=== PATIENT | female | born 1945 | race Caucasian/White ===

== ENCOUNTER 2018-04-25 11:53 | Outpatient (CLI) | payer BC, MEDICARE ==
--- NOTE | 2018-04-25 15:18 | RAD ---
XR BONE SURVEY ADULT STANDARD: HISTORY: C90.0, staging of multiple myeloma. COMPARISON: None. TECHNIQUE: AP and lateral views of the cervical, thoracic, and lumbar spine as well as lateral radiograph of the calvarium, AP and lateral views of both humeri, as well as both forearms, as well as AP views of bot h femurs, tibia fibulas, forearms, and pelvis. FINDINGS: There is a single lytic focus projecting over the parietal calvarium only seen on the single view. Degenerative C4 over C5 retrolisthesis is present. No lytic foci of the lumbar or thoracic spine. Mild levoscoliosis lumbar spine. Mild blunting left costophrenic sulcus. Heart size is enlarged. Mild levoscoliosis lumbar spine. There is scarring of the right mid lung. Both humeri are without suspicious lytic or blastic foci. Forearms without suspicious lytic focus. IMPRESSION: Single lytic focus over the parietal calvarium. CT recommended. POS: [facility]
== END 2018-04-25 11:54 | disposition home or self-care (01) ==
LOC: BICRAD 11:53
PROVIDERS: ATTEND Internal Medicine Hematology & Oncology
DX: C90.00 Multiple myeloma not having achieved remission (principal); M89.9 Disorder of bone, unspecified
CPT/HCPCS: 36415; 77075; 80053; 82232; 82248; 83615; 83883; 84100; 84165; 84550; 86334

== ENCOUNTER 2018-05-02 09:17 | Day surgery (SDC) | payer BC, MEDICARE ==
[2018-05-02 09:45] LABS: Hemoglobin 12.6 g/dL (12.0-16.0); Mean Corpuscular HGB CONC 33.5 g/dL (32.0-36.0); Mean Corpuscular Hemoglobin 32.5 pg (27.0-31.0); Mean Corpuscular Volume 97.1 fL (78.0-98.0); Mean Platelet Volume 6.8 fL (7.4-10.4); Platelet Count 383 thou/uL (130-400); RBC Distribution Width 12.2 % (11.5-14.5); Red Blood Cell (RBC) Count 3.88 mill/uL (4.20-5.40); White Blood Cell (WBC) Count 6.2 thou/uL (4.8-10.8)
[2018-05-02 09:49] LABS: PTT 28.3 SEC (22.9-36.1); Prothrombin Time 13.2 SEC (12.0-14.7)
[2018-05-02 10:41] VITALS: BMI 24.3
--- NOTE | 2018-05-02 14:37 | CT ---
CT GUIDED PERCUTANEOUS BONE MARROW ASPIRATION AND BIOPSY FROM RIGHT ILIAC BONE: Date: 05/02/18 HISTORY: Multiple myeloma. TECHNIQUE: The procedure, including the risks and complications, were explained to the patient and informed cons ent was obtained. The patient was placed on the CT scan table in the prone position. Conscious sedati on was performed with the intravenous administration of 1 mg of Versed and 50 mcg of Fentanyl intrave nously. A noncontrast CT scan was obtained through the level of the iliac bones with grid localizer i n place. An area was marked and then meticulously prepped and draped in the usual sterile fashion. Skin and subcutaneous tissues overlying the right iliac bone were infiltrated with buffered 1% lidoca ine for local anesthesia. A small skin incision was made. An 11 gauge biopsy needle was advanced to the right iliac bone and position was confirmed with three axial noncontrasted CT images. Needle was advanced just through the cortex, and approximately 10 mL o f bone aspirate was obtained. A 1.0 cm length bone biopsy specimen was then performed and the needle was removed. Hemostasis was achieved with direct pressure. The patient tolerated the procedure well and without im mediate complication. IMPRESSION: Technically successful CT guided bone marrow aspiration and biopsy of the right iliac bone. Pathology is currently pending. POS: [facility]
== END 2018-05-02 14:35 | disposition home or self-care (01) ==
LOC: CT 09:17
PROVIDERS: ATTEND Radiology Vascular & Interventional Radiology
PROC: 07DR3ZX Extraction of Iliac Bone Marrow, Percutaneous Approach, Diagnostic (ICD-10-PCS; principal; 2018-05-02)
DX: C90.00 Multiple myeloma not having achieved remission (principal); Z79.899 Other long term (current) drug therapy
CPT/HCPCS: 20225; 36415; 77012; 85027; 85097; 85610; 85730; 88184; 88237; 88305; 88311; 88313

== ENCOUNTER 2018-05-05 10:03 | Outpatient (CLI) | payer BC, MEDICARE ==
--- NOTE | 2018-05-05 15:10 | PET ---
PET WITH CT WHOLE BODY: CLINICAL HISTORY: Multiple myeloma. RADIOTRACER: 10.7 mCi F18-FDG IV intermixed with 10 mL 0.9% sodium chloride. There is appropriate biodistribution of radiotracer activity. FINDINGS: There is no hypermetabolic calvarial lesion to account for the punctate lucency seen on the lateral c alvarial radiograph, 04/25/18. There is a focus of increased metabolic activity at the left antecubital fossa, likely related to an injection site. No hypermetabolic mass or adenopathy of the neck, chest, abdomen, or pelvis. No hypermetabolic skelet al lesions are seen. There is presumed granulomatous calcification of the right upper lobe. Patchy opacities of each lung may be related to respiratory motion artifact. There is scattered vascular calcification. There are c olonic diverticula. IMPRESSION: No hypermetabolic lesions are evident, related to the patient's history of multiple myeloma. Specific ally, no hypermetabolic lesion is seen at the calvarium at site of punctate lucency on recent radiogr aph. Attenuation correction nondiagnostic CT imaging also reveals a punctate lucency which is located within the high right parietal convexity. This is too small to definitively characterize. Imaging fo llow-up may prove useful, as this finding could potentially represent a myelomatous lesion below thre shold for PET resolution. Consider pre and postcontrast brain MRI to evaluate for a small enhancing s oft tissue lesion in this region. POS: JASON
== END 2018-05-05 10:04 | disposition home or self-care (01) ==
LOC: PET 10:03
PROVIDERS: ATTEND Internal Medicine Hematology & Oncology
DX: C90.00 Multiple myeloma not having achieved remission (principal)
CPT/HCPCS: 78815; 78816; A9552

== ENCOUNTER 2018-10-31 10:24 | Day surgery (SDC) | payer BC, MEDICARE ==
[2018-10-31] MEDS ORDERED: diphenhydrAMINE 25 MG CAP PO SCH (11:15)
[2018-10-31] MEDS ORDERED: Acetaminophen 500 MG TAB PO SCH (11:15)
[2018-10-31 16:26] VITALS: BP 163/77
[2018-10-31 16:48] VITALS: TEMP 98.4
== END 2018-10-31 16:48 | disposition home or self-care (01) ==
LOC: ONC/OP 10:24
PROVIDERS: ATTEND Internal Medicine Hematology & Oncology
PROC: 30233N1 Transfusion of Nonautologous Red Blood Cells into Peripheral Vein, Percutaneous Approach (ICD-10-PCS; principal; 2018-10-31)
DX: D64.9 Anemia, unspecified (principal); D69.6 Thrombocytopenia, unspecified
CPT/HCPCS: 36430; 86850; 86900; 86901; P9016; Q0163

== ENCOUNTER 2020-01-04 11:01 | Outpatient (CLI) | payer MEDICARE ==
--- NOTE | 2020-01-31 14:54 | MMO ---
Bilateral MAMMO Bilat Screen [facility]. CLINICAL HISTORY: Patient is 74 years old and is seen for screening. The patient has a history of other cancer. VIEWS: The views performed were: bilateral craniocaudal with tomosynthesis and bilateral mediolateral oblique with tomosynthesis. This study has been interpreted with the assistance of computer-aided detection. MAMMOGRAM FINDINGS: There are scattered fibroglandular densities. There are benign appearing calcifications in the right breast. There are no suspicious masses, suspicious calcifications, or new areas of architectural distortion. IMPRESSION: THERE IS NO MAMMOGRAPHIC EVIDENCE OF MALIGNANCY. A ROUTINE FOLLOW-UP MAMMOGRAM IN 1 YEAR IS RECOMMENDED. THE RESULTS OF THIS EXAM WERE SENT TO THE PATIENT. ACR BI-RADS Category 2 - Benign finding MAMMOGRAPHY NOTE: 1. A negative mammogram report should not delay a biopsy if a dominant of clinically suspicious mass is present. 2. Approximately 10% to 15% of breast cancers are not detected by mammography. 3. Adenosis and dense breasts may obscure an underlying neoplasm. Reported by: FANNY PATTERSON MD Electonically Signed: [id number]
== END 2020-01-04 11:02 | disposition home or self-care (01) ==
LOC: BICMAMMO 11:01
PROVIDERS: ATTEND Family Medicine
DX: Z12.31 Encounter for screening mammogram for malignant neoplasm of breast (principal); Z85.89 Personal history of malignant neoplasm of other organs and systems
CPT/HCPCS: 77063; 77067

== ENCOUNTER 2020-08-27 09:52 | Outpatient (CLI) | payer MEDICARE ==
[2020-08-27] MEDS ORDERED: Magnevist 469MG/ML 20 ML VIAL ONE (09:55)
[2020-08-27] MEDS ORDERED: Lidocaine 1% PF 10 ML AMP ONE (16:20)
[2020-08-27] MEDS ORDERED: Iopamidol 300 61% 50 ML VIAL FS ONE (16:20)
[2020-08-27] MEDS ORDERED: Gadobenate Dimeglumine 529 MG/1 ML (20ML VIAL) ONE (16:20)
[2020-08-27] MEDS ORDERED: EPINEPHrine 1 MG/ML AMP ONE (16:20)
== END 2020-08-27 09:53 | disposition home or self-care (01) ==
LOC: RAD 09:52
PROVIDERS: ATTEND Internal Medicine Hematology & Oncology
DX: M75.122 Complete rotator cuff tear or rupture of left shoulder, not specified as traumatic (principal); C90.00 Multiple myeloma not having achieved remission; C79.51 Secondary malignant neoplasm of bone; M19.012 Primary osteoarthritis, left shoulder
CPT/HCPCS: 23350; A9577; A9579; J0171; J2001; Q9967

== ENCOUNTER 2021-01-06 13:12 | Outpatient (CLI) | payer MEDICARE | END 2021-01-06 13:13 | disposition home or self-care (01) | LOC: BICMAMMO 13:12 | PROVIDERS: ATTEND Family Medicine | DX: Z12.31 Encounter for screening mammogram for malignant neoplasm of breast (principal); N95.9 Unspecified menopausal and perimenopausal disorder; M81.0 Age-related osteoporosis without current pathological fracture; M85.851 Other specified disorders of bone density and structure, right thigh | CPT/HCPCS: 77063; 77067; 77080 ==

== ENCOUNTER 2022-01-09 11:27 | Outpatient (CLI) | payer MEDICARE | END 2022-01-09 11:28 | disposition home or self-care (01) | LOC: BICMAMMO 11:27 | PROVIDERS: ATTEND Family Medicine | DX: Z12.31 Encounter for screening mammogram for malignant neoplasm of breast (principal); Z85.89 Personal history of malignant neoplasm of other organs and systems | CPT/HCPCS: 77063; 77067 ==

== ENCOUNTER 2023-01-15 08:50 | Outpatient (CLI) | payer MEDICARE | END 2023-01-15 08:51 | disposition home or self-care (01) | LOC: BICMAMMO 08:50 | PROVIDERS: ATTEND Family Medicine | DX: Z12.31 Encounter for screening mammogram for malignant neoplasm of breast (principal); Z85.89 Personal history of malignant neoplasm of other organs and systems | CPT/HCPCS: 77063; 77067 ==

== ENCOUNTER 2023-02-19 09:46 | Outpatient (CLI) | payer MEDICARE | END 2023-02-19 09:47 | disposition home or self-care (01) | LOC: BICMAMMO 09:46 | PROVIDERS: ATTEND Family Medicine | DX: Z13.820 Encounter for screening for osteoporosis (principal); M18.0 Bilateral primary osteoarthritis of first carpometacarpal joints; M85.89 Other specified disorders of bone density and structure, multiple sites; Z78.0 Asymptomatic menopausal state | CPT/HCPCS: 77080 ==